=== PATIENT | female | born 1995 | race Caucasian/White ===

== ENCOUNTER 2022-01-09 07:36 | Emergency (ER) | payer OTHER, SELFPAY ==
[2022-01-09 07:38] VITALS: BP 110/80; PULSE 92; RESP 16; TEMP 36.9; O2SAT 97; BMI 27.0
--- NOTE | 2022-01-09 08:05 | ED.GENADULT ---
HPI - General Adult General Chief complaint: General Medical Stated complaint: Mold exposure illness Time Seen by Provider: 01/09/22 07:39 Source: patient Mode of arrival: ambulatory Limitations: no limitations History of Present Illness MD complaint: mold exposure Onset (ago): week(s) (1) Severity: moderate Quality: burning Pain Consistency: intermittent Relieving factors: none Exacerbating factors: other (exposure after drain leak) Associated symptoms: confusion, headaches, loss of appetite, malaise, nausea/vomiting and weakness Treatments prior to arrival: none Review of Systems Review of Systems: Constitutional : No Fever, No Chills, pos Fatigue, No Malaise ENT/Mouth : No sore throat, No Rhinorrhea Eyes: No Eye Pain, No Swelling, No Redness Cardiovascular : No Chest Pain, No SOB Respiratory : No Cough, No Sputum, No Wheezing Gastrointestinal : No Nausea, No Vomiting, No Diarrhea Genitourinary : No Dysuria, No Urinary Frequency, No Hematuria, Musculoskeletal : No joint pain, No Myalgias, No Joint Swelling Skin : No Skin Lesions, No rash Neuro : pos Weakness, No Numbness, No Dizziness, pos Headache Psych : pos Anxiety/Panic, No Depression [facility] Past Medical History Attestation statement: The following information was validated with the patient. Medical History ADHD Social History Social History (Updated 01/09/22 @ 08:07 by Dania Yeboah DO) Patient Tobacco Use Status: Never used Tobacco Advance Directives: No Advance Directives Information Provided: No Physical Exam ED Vital Signs: Vital Signs - 24 hr 01/09/22 07:38 Temperature 98.5 F Pulse Rate 92 Respiratory Rate 16 Blood Pressure 110/80 Pulse Oximetry 97 Oxygen Delivery Method Room Air BMI result Body Mass Index 27.0 Appearance: Alert. Oriented X3. No acute distress. Eyes: Pupils equal, round and reactive to light. ENT: Pharynx normal. Neck: Normal inspection. Neck supple. CVS: Normal heart rate and rhythm. Pulses normal. Respiratory: No respiratory distress. Breath sounds normal. Abdomen: Soft and non-tender. Skin: Skin warm and dry. Normal skin color. Extremities: No lower extremity edema. Neuro: Oriented X 3. No motor deficit. No sensory deficit. Course Course Course Narrative: oil heat - water leak doubt CO poisoning Medical Decision Making [facility] Narrative Medical decision making narrative: 26 yo female with no sig PMH here with vague multiple complaints after mold exposure - overall not toxic appearing but discussed she will need to avoid the area. At this time will discuss avoidance she declines anti histamines and plans to consult [facility] and her landlord, roommate has similar situations. Discharge Plan Discharge Clinical Impression: Mold exposure Patient Disposition: Home, Self-Care Instructions: Contact Precautions (ED), Insomnia (ED) Additional Instructions: return to ED for any worsening symptoms or concerns you should avoid the area with mold - your symptoms will persist until this is cleaned up. Strict avoidance of this area should be done including not living in the area until proper cleaning has been done. Stand Alone Forms: Work/School Release
== END 2022-01-09 08:35 | disposition home or self-care (01) ==
PROVIDERS: Emergency Provider Emergency Medicine
DX: Z77.120 Contact with and (suspected) exposure to mold (toxic) (principal); R53.1 Weakness
CPT/HCPCS: 99282

== ENCOUNTER 2022-01-10 04:56 | Emergency (ER) | payer OTHER, SELFPAY ==
--- NOTE | ~2022-01-10 | XR_ITS ---
EXAMINATION: XR CHEST CLINICAL INFORMATION: Cough. Dyspnea. COMPARISON: None TECHNIQUE: 2 views of the chest were obtained. FINDINGS: No significant abnormality is noted involving the heart, lungs, mediastinum, bony thorax or soft tissues. XR/XR chest 2V IMPRESSION: Unremarkable examination.
[2022-01-10 05:01] VITALS: BP 120/77; PULSE 100; RESP 18; TEMP 36.6; O2SAT 99; BMI 27.0
[2022-01-10 05:30] LABS: COVID-19 Test Negative (Negative)
--- NOTE | 2022-01-10 06:39 | ED.URI ---
HPI - URI/Sore Throat General Chief Complaint: Upper Respiratory Symptoms Stated Complaint: mold exposure symptoms? Time Seen by Provider: 01/10/22 06:36 Source: patient and old records reviewed Mode of arrival: ambulatory Limitations: no limitations History of Present Illness HPI Narrative: seen yesterday for chest tightnessand anxiety feelings, brain fogginess from mold exposure - removed herself from situation in a motel now feeling insomnia and some chest tightness MD elicited complaint: other (insomnia and chest tightness) Pertinent past history: other (chronic illness) Onset (ago): day(s) (3+) Consistency: intermittent Severity: moderate Able to tolerate fluids by mouth: Yes Exacerbating factors: other (exposure) Relieving factors: nothing Context: other (mold exposure) Associated symptoms: myalgias, headache, chest pain, nausea and other (panic attacks) Treatments prior to arrival: none Related Data Previous Rx's Medication Instructions Recorded fluticasone furoate 27.5 1 spray intranasal DAILY PRN 01/10/22 mcg/actuation nasal allergy symptoms #5.9 mL spray,suspension montelukast 10 mg tablet 10 mg PO BEDTIME #30 tabs 01/10/22 Allergies Allergy/AdvReac Type Severity Reaction Status Date / Time No Known Allergies Allergy Verified 01/10/22 05:00 Review of Systems Review of Systems: Constitutional : No Weight loss, No Fever, No Chills ENT/Mouth : No sore throat, No Rhinorrhea Eyes: No Eye Pain, No Swelling Cardiovascular : pos Chest Pain, no SOB, no Dyspnea on Exertion, No Orthopnea, No Edema, No Palpitations Respiratory : No Cough, No Sputum Gastrointestinal : pos Nausea, No Vomiting, No Diarrhea, No abdominal Pain, No Hematochezia, No Melena Genitourinary : No Dysuria, No Urinary Frequency Musculoskeletal : No joint pain, No Myalgias, No Joint Swelling Skin : No Skin Lesions, No rash Neuro : No Weakness, No Numbness, No Dizziness, pos Headache Psych : pos Anxiety/Panic, No Depression, pos insomnia Heme/Lymph: No Bruising, No Lymphadenopathy Endocrine : No Polyuria, No Polydipsia All other systems reviewed and are negative PMFSH Past Medical History Attestation statement: The following information was validated with the patient. Medical History ADHD Social History Social History Patient Tobacco Use Status: Never used Tobacco Advance Directives: No Advance Directives Information Provided: Yes Physical Exam Vital Signs: Vital Signs: Last Vital Signs Temp 97.8 F 01/10/22 05:01 Pulse 70 01/10/22 06:45 Resp 18 01/10/22 06:45 BP 110/70 01/10/22 06:45 Pulse Ox 100 01/10/22 06:45 O2 Del Method 01/10/22 06:45 BMI result Body Mass Index 27.0 Appearance: Alert. Oriented X3. No acute distress. VS stable Eyes: Pupils equal, round and reactive to light. ENT: Pharynx normal. Neck: Normal inspection. Neck supple. CVS: Normal heart rate and rhythm. Pulses normal. Respiratory: No respiratory distress. Breath sounds normal. Abdomen: Soft and nontender. Skin: Skin warm and dry. Normal skin color. Normal skin turgor. Extremities: No lower extremity edema. No calf ttp Neuro: Oriented X 3. No motor deficit. No sensory deficit. MDM - URI/Sore Throat MDM Narrative Medical decision making narrative: 26 yo female with mold exposure here with normal VS, normal CXR, COVID negative not toxic appearing - patient is c/o vague symptoms since mold exposure, we discussed labs but she wants to hold off. Patient agrees to fluticasone and singulair. she is in a motel. She has ativan to sleep at home we discussed she should start taking it now. OVerall clear lungs not toxic appearing Lab Data Labs: Lab Results 01/10/22 Range/Units 05:10 COVID-19 ([facility]) Negative (Negative) COVID-19 Clin Com See Note Discharge Plan Discharge Clinical Impression: Mold exposure Insomnia Qualifiers: Insomnia type: adjustment Qualified Code(s): F51.02 - Adjustment insomnia Patient Disposition: Home, Self-Care Instructions: Insomnia (ED) Additional Instructions: return to ED for any worsening symptoms or concerns please continue to avoid mold exposure take your ativan at night to help with sleep take the montelukast for the next 10 days Prescriptions: New fluticasone furoate 27.5 mcg/actuation spray,suspension 1 spray intranasal DAILY PRN (Reason: allergy symptoms) Qty: 5.9 0RF Rx Instructions: into each nostril montelukast 10 mg tablet 10 mg PO BEDTIME Qty: 30 0RF Stand Alone Forms: Work/School Release
[2022-01-10 06:45] VITALS: BP 110/70; PULSE 70; RESP 18; O2SAT 100
[2022-01-10 07:46] VITALS: BP 125/71; PULSE 84; O2SAT 100
== END 2022-01-10 08:11 | disposition home or self-care (01) ==
PROVIDERS: Emergency Provider Emergency Medicine; PCP Internal Medicine
DX: F51.02 Adjustment insomnia (principal); M79.10 Myalgia, unspecified site; R07.89 Other chest pain; Z20.822 Contact with and (suspected) exposure to COVID-19
CPT/HCPCS: 71046; 87635; 99283; 99284